=== PATIENT | female | born 1980 | race Caucasian/White ===

== ENCOUNTER 2023-06-12 08:28 | Day surgery (SDC) | payer BC ==
[2023-06-12] MEDS: Lactated Ringers 1,000 ML IV SCH (08:41)
[2023-06-12] MEDS ORDERED: Propofol 200 MG/20 ML SDV ONE ×3 (09:34→11:05)
[2023-06-12] MEDS ORDERED: fentaNYL 100 MCG/2 ML SDV ONE (09:34)
== END 2023-06-12 12:35 | disposition home or self-care (01) ==
LOC: VM.SDS 08:28
PROVIDERS: ATTEND Family Medicine
DX: D12.6 Benign neoplasm of colon, unspecified (principal); R19.4 Change in bowel habit; Z80.0 Family history of malignant neoplasm of digestive organs; Z79.899 Other long term (current) drug therapy
CPT/HCPCS: 00811; J2704; J3010; J7120